=== PATIENT | male | born 1985 | race African-American/Black ===

== ENCOUNTER → 2023-10-18 | Outpatient (CLI) | payer OTHER ==
[~2023-10-18] MED LIST: ALEV220C2 PO; AUGM875T28 PO; IBUP1TAB7 PO
[2023-10-18 12:24] LABS: PLATELET COUNT, AUTOMATED 306 10^3/uL (150-450)
[2023-10-18 12:45] LABS: INR 1.08; PARTIAL THROMBOPLASTIN TIME 31.6 SECONDS (24.8-34.2); PROTHROMBIN TIME 13.7 SECONDS (12.5-14.5)
== END ==
LOC: M LAB 11:49
PROVIDERS: ATTEND Physician Assistant
DX: Z01.812 Encounter for preprocedural laboratory examination (principal)

== ENCOUNTER 2025-04-16 06:14 | Day surgery (SDC) | payer OTHER ==
[~2025-04-16] VITALS: Ht 185.4 cm; Wt 91.6 kg
[~2025-04-16 06:14] MED LIST changes: +ACET32TAB PO; +IBUP200C27 PO; +LORA-243 PO
[2025-04-16] MEDS: SODIUM BICARBONATE 8.4% INJ 50MEQ/50ML VIAL XX ONE (07:30)
[2025-04-16] MEDS: LIDOCAINE W/EPINEPHrine 1% 20 ML VIAL XX ONE (07:30)
[2025-04-16 08:53] VITALS: BP 103/65; TEMP 97.8; O2SAT 100
== END 2025-04-16 09:16 | disposition home or self-care (01) ==
LOC: M SDC 06:14
PROVIDERS: ATTEND Orthopaedic Surgery Hand Surgery
DX: M65.311 Trigger thumb, right thumb (principal); M65.4 Radial styloid tenosynovitis [de Quervain]; Z88.5 Allergy status to narcotic agent; Z88.8 Allergy status to other drugs, medicaments and biological substances

== ENCOUNTER → 2025-04-26 | Outpatient (CLI) | payer OTHER | LOC: M PLARAD 10:17 | PROVIDERS: ATTEND General Practice | DX: M54.2 Cervicalgia (principal); M47.812 Spondylosis without myelopathy or radiculopathy, cervical region; M48.02 Spinal stenosis, cervical region ==

== ENCOUNTER → 2025-06-26 | Outpatient (CLI) | payer OTHER ==
[2025-06-26 17:30] LABS: PLATELET COUNT, AUTOMATED 288 10^3/uL (150-450)
[2025-06-26 18:08] LABS: INR 1.05
== END ==
LOC: M LAB 16:46
PROVIDERS: ATTEND Physician Assistant
DX: Z01.818 Encounter for other preprocedural examination (principal)